=== PATIENT | female | born 1985 | race Caucasian/White ===

== ENCOUNTER → 2016-06-29 | Day surgery (SDC) | payer MEDICAID ==
[~2016-06-29] MED LIST: Lidocaine 1% 20 ML MDV ONE
[2016-06-29 09:20] VITALS: BP 111/68
--- NOTE | 2016-06-29 12:49 | OR ---
DATE OF OPERATION: 06/29/2016 PREOPERATIVE DIAGNOSIS: VENOUS INSUFFICIENCY WITH PAINFUL VARICOSE VEINS. POSTOPERATIVE DIAGNOSIS: VENOUS INSUFFICIENCY WITH PAINFUL VARICOSE VEINS. SURGEON: Guy Gautam MD PROCEDURE: AISHWARYA, RIGHT GSV. ANESTHESIA: Local with tumescent. COMPLICATIONS: None. SPECIMEN: None. FINDINGS: Successful AISHWARYA, right GSV. INDICATIONS: The patient has documented venous insufficiency with complicated and painful varicose veins. After conservative therapy, she elected to proceed with endovenous ablation. DESCRIPTION OF PROCEDURE: The patient was brought to the operating room site. The insufficient saphenous vein mapped via ultrasound and diagrammed on the overlying skin along with the depth and diameter of the vein to be treated along with the access site. She was prepped and draped in a sterile fashion. She was placed in reverse Trendelenburg position. Local anesthesia was instilled over the access site. The vein was accessed using ultrasound guidance in Seldinger technique with the guidewire introduced through the needle. A small incision made with an 11 blade scalpel. The guidewire was exchanged with a 6-Italian sheath in the usual fashion, held in place by skin tension. The guidewire removed, sheath flushed, radiofrequency probe was placed into the vein through the sheath and positioned approximately 2.1 cm distal to the saphenofemoral junction under ultrasound guidance, keeping the tip of the catheter just inferior to the superficial epigastric vein to preserve flow in that area. After probe position verified via ultrasound, tumescent anesthesia was infiltrated under ultrasound guidance, precisely in the perivenous compartment along the length of the vein to be treated from the saphenofemoral junction. From the entry site to the saphenofemoral junction, a nice halo effect was achieved. The patient was placed back in Trendelenburg position to exsanguinate the superficial venous system. After radiofrequency probe position confirmed with ultrasound and under direct external compression along the length of the heating element, radiofrequency energy was applied. The vein was segmentally ablated by heating a 7 cm segment and indexing the catheter forward 6.5 cm until treatment length complete. Device temperature was maintained at 120 degrees Celsius with an initial power level of 40 bowman dropping below 20 for each treatment. Total radiofrequency treatment time was 2 minutes and 40 seconds with 8 radiofrequency cycles. A total of 300 mL of tumescent anesthesia was used. Repeat ultrasound confirmed successful treatment. Catheter and sheath were withdrawn, and hemostasis was achieved with pressure. Leg was wrapped from the level of the ankle to the groin with a compression wrap. The patient was stable in the recovery room. PRANEETH /[id number]
== END ==
LOC: CC.SDS 07:19
PROVIDERS: ATTEND Family Medicine
DX: I87.2 Venous insufficiency (chronic) (peripheral) (principal); I83.811 Varicose veins of right lower extremity with pain; Z88.2 Allergy status to sulfonamides; Z88.8 Allergy status to other drugs, medicaments and biological substances; Z79.899 Other long term (current) drug therapy; Z78.9 Other specified health status; Z87.891 Personal history of nicotine dependence; Z72.0 Tobacco use
CPT/HCPCS: 36475; A4216

== ENCOUNTER → 2016-07-07 | Day surgery (SDC) | payer MEDICAID ==
[~2016-07-07] MED LIST changes: +ALPRAZolam 0.25 MG Tab ONE; +ALPRAZolam 0.25 MG Tab PO ONE; +Lidocaine 1% 30 ML SDV INJECT ONE
--- NOTE | 2016-07-07 08:57 | OR ---
DATE OF OPERATION: 07/07/2016 PREOPERATIVE DIAGNOSIS: VENOUS INSUFFICIENCY WITH PAINFUL VARICOSE VEINS. POSTOPERATIVE DIAGNOSIS: VENOUS INSUFFICIENCY WITH PAINFUL VARICOSE VEINS. SURGEON: Guy Gautam MD PROCEDURE: AISHWARYA, LEFT GSV. ANESTHESIA: Local with tumescent and oral Xanax. COMPLICATIONS: None. SPECIMEN: None. FINDINGS: Successful AISHWARYA, left GSV. INDICATIONS: The patient has documented venous insufficiency. She has symptomatic varicose veins and elects to undergo radiofrequency ablation. DESCRIPTION OF PROCEDURE: The patient was brought to the operating room site and the insufficient saphenous vein mapped via ultrasound and diagrammed on the overlying skin along with the access site. The entire limb was prepped and draped in sterile fashion. The patient was placed in reverse Trendelenburg position and local anesthesia was instilled at the access site. The vein was accessed using ultrasound guidance and Seldinger technique with a guidewire introduced through a needle, which was exchanged over the guidewire, first a six- Cuban sheath after a small incision with an 11 blade scalpel. The sheath was held in place by skin tension. The guidewire was removed. The sheath was flushed. The radiofrequency probe was placed into the vein through the sheath and positioned approximately 1.67 cm distal to the saphenofemoral junction using ultrasound guidance. After probe position verified via ultrasound, tumescent anesthesia was infiltrated, precisely in the perivenous compartment along the length of the vein, achieving a nice halo affect documented via ultrasound. The patient was put back in Trendelenburg position to exsanguinate the superficial system. Radiofrequency probe position confirmed via ultrasound and with direct external compression along the length of the humeral. Radiofrequency energy was applied. The vein was ablated by heating a 7 cm segment and indexing the catheter forward 6.5 cm until treatment length complete. Device temperature was maintained in the 120 degrees Celsius with an initial power level of 40 bowman, dropping to below 20 for each treatment. Total treatment time was a minute and 40 seconds with 5 radiofrequency cycles. A total of 300 mL of tumescent was used. Repeat ultrasound confirmed successful treatment. Catheter and sheath were withdrawn without problem. Hemostasis was established with direct pressure, and a skin incision was closed with the bandage and compression wrap from the level of the foot to the groin. The patient was stable in the recovery room. MELISSA/DAYA /[id number]
[2016-07-07 09:26] VITALS: BP 110/66
== END ==
LOC: CC.SDS 06:28
PROVIDERS: ATTEND Family Medicine
DX: I87.2 Venous insufficiency (chronic) (peripheral) (principal); I83.812 Varicose veins of left lower extremity with pain; Z88.2 Allergy status to sulfonamides; Z88.8 Allergy status to other drugs, medicaments and biological substances; Z79.899 Other long term (current) drug therapy; Z78.9 Other specified health status; Z87.891 Personal history of nicotine dependence; Z72.0 Tobacco use
CPT/HCPCS: 36415; 36475; 85014; 85018; A4216; A9270; G0145

== ENCOUNTER 2017-06-16 16:37 | Emergency (ER) | payer MEDICAID ==
[2017-06-16 16:48] VITALS: BP 120/72
--- NOTE | 2017-06-16 18:04 | EDM.PDOC ---
ED HPI GENERAL MEDICAL PROBLEM - General Chief Complaint: Lower Extremity Injury/Pain Stated Complaint: RIGHT FOOT PAIN Time Seen by Provider: 06/16/17 16:57 - History of Present Illness INITIAL COMMENTS - FREE TEXT/NARRATIVE: Briana is a pleasant 32 year old female who presents to the Ed with c/o right foot pain after twisting her foot. She reports she was ambulating and stepped wrong. She reports her right foot "twisted" and she "heard a crack." She reports she had instant pain. She reports she took 800 mg Ibuprofen immediately after incident occurred. She reports she also tried icing it. She reports she came in to make sure she didn't fracture it. Denies any numbness or tingling. Reports she has difficulty ambulating on it due to pain. Pain is improved when foot is still. Pain increases with movement and weight bearing. Onset: Today, Sudden Duration: Intermittent Location: Reports: Lower Extremity, Right Quality: Reports: Ache, Sharp Severity: Moderate Improves with: Reports: Cold Therapy, Medication Worsens with: Reports: Movement Context: Reports: Activity Associated Symptoms: Reports: No Other Symptoms. Denies: Confusion, Chest Pain , Cough, cough w sputum, Diaphoresis, Fever/Chills, Headaches, Loss of Appetite , Malaise, Nausea/Vomiting, Rash, Seizure, Shortness of Breath, Syncope, Weakness Treatments [employer] REPRESENTATIVE: Reports: Cold Therapy, NSAIDS Right Feet Pain Score (Numeric/FACES): 6 - Related Data Allergies Allergy/AdvReac Type Severity Reaction Status Date / Time cefdinir Allergy Cannot Verified 06/16/17 16:42 Remember fexofenadine [From Jane] Allergy Cannot Verified 06/16/17 16:42 Remember Sulfa (Sulfonamide Allergy Cannot Verified 06/16/17 16:42 Antibiotics) Remember Home Meds: Home Meds Amoxicillin 1 cap PO BID 06/16/17 [History] Past Medical History - Past Health History Medical/Surgical History: Denies Medical/Surgical History Musculoskeletal History: Reports: Arthritis Other Musculoskeletal History: R middle finger hx crush in door Social & Family History - Family History Family Medical History: Noncontributory - Tobacco Use Smoking Status *Q: Never Smoker - Caffeine Use Caffeine Use: Reports: None - Recreational Drug Use Recreational Drug Use: No Review of Systems - Review of Systems Review Of Systems: ROS reveals no pertinent complaints other than HPI. ED EXAM, GENERAL - Physical Exam Exam: See Below Exam Limited By: No Limitations General Appearance: Alert, WD/WN, No Apparent Distress Peripheral Pulses: 2+: Posterior Tibial (R), Dorsalis Pedis (R) Extremities: Normal Inspection, No Pedal Edema, Normal Capillary Refill, Limited Range of Motion (inversion and eversion). No: Pedal Edema, Joint Swelling, Leg Pain, Increased Warmth, Redness Neurological: Alert, Oriented, No Motor/Sensory Deficits Psychiatric: Normal Affect, Normal Mood Skin Exam: Warm, Dry, Intact, Normal Color, No Rash Course - Vital Signs Last Recorded V/S: Last Vital Signs Temp 96.5 F 06/16/17 16:45 Pulse 87 06/16/17 16:45 Resp 18 06/16/17 16:45 BP 120/72 06/16/17 16:45 Pulse Ox 99 06/16/17 16:45 - Orders/Labs/Meds Orders: Active Orders 24 hr Category Date Time Status Foot Comp Min 3V Rt [CR] Stat Exams 06/16/17 16:51 Taken - Re-Assessments/Exams Free Text/Narrative Re-Assessment/Exam: 06/16/17 18:00 Xrays show no acute fracture or dislocation. Does show well-corticated ossicle at the lateral base of the proximal first metatarsal, representing previous trauma. Results discussed and images reviewed with patient. Departure - Departure Time of Disposition: 17:59 Disposition: Home, Self-Care 01 Condition: Good Clinical Impression: Right foot sprain Qualifiers: Encounter type: initial encounter Qualified Code(s): S93.601A - Unspecified sprain of right foot, initial encounter - Discharge Information Instructions: Ankle Sprain, [id number] Referrals: Guy Gautam MD [Primary Care Provider] - Additional Instructions: 1) Weight bearing as tolerated 2) Ibuprofen 800 mg Q 8 hours as needed for pain 3) May alternate with 650 mg Tylenol as needed for pain 4) Ice affected area 20 minutes at a time at least 2 times /day 5) Elevate extremity 6) Marlon wrap to compress area as needed for comfort 7) Return to clinic if pain persist or continued inability to ambulate in 7-10 days - My Orders Last 24 Hours: My Active Orders 06/16/17 16:51 Foot Comp Min 3V Rt [CR] Stat - Assessment/Plan Last 24 Hours: My Active Orders 06/16/17 16:51 Foot Comp Min 3V Rt [CR] Stat
== END 2017-06-16 18:12 | disposition home or self-care (01) ==
LOC: CC.ED 16:37
DX: S93.601A Unspecified sprain of right foot, initial encounter (principal); Z88.8 Allergy status to other drugs, medicaments and biological substances; Z88.2 Allergy status to sulfonamides; X50.1XXA Overexertion from prolonged static or awkward postures, initial encounter
CPT/HCPCS: 73630-RT; 99283

== ENCOUNTER → 2018-07-18 | Day surgery (SDC) | payer MEDICAID ==
[~2018-07-18] MED LIST changes: -ALPRAZolam 0.25 MG Tab ONE; -ALPRAZolam 0.25 MG Tab PO ONE; +ALPRAZolam 0.5 MG Tab.DIS (ODT) PO ONE; -Lidocaine 1% 30 ML SDV INJECT ONE
[2018-07-18] MEDS: ALPRAZolam ODT 0.25 MG Tab ONE (06:10)
[2018-07-18 09:00] VITALS: BP 95/61
== END ==
LOC: CC.SDS 08:05
PROVIDERS: ATTEND Family Medicine
DX: I87.2 Venous insufficiency (chronic) (peripheral) (principal); Z88.2 Allergy status to sulfonamides; Z88.1 Allergy status to other antibiotic agents; Z88.8 Allergy status to other drugs, medicaments and biological substances
CPT/HCPCS: A9270-GY

== ENCOUNTER → 2019-11-09 | Day surgery (SDC) | payer OTHER ==
[~2019-11-09] MED LIST changes: -ALPRAZolam 0.5 MG Tab.DIS (ODT) PO ONE; +Ketamine 200 MG/20 ML MDV IV ONE; +Lactated Ringers 1,000 ML IV SCH; -Lidocaine 1% 20 ML MDV ONE; +Propofol 200 MG/20 ML SDV IV ONE; +fentaNYL 100 MCG/2 ML SDV IV ONE
[2019-11-09 13:03] VITALS: BP 104/68; PULSE 67
--- NOTE | 2019-11-12 08:52 | OR ---
DATE OF OPERATION: 11/09/2019 PREOPERATIVE DIAGNOSIS: CRICOPHARYNGEAL DYSPHAGIA. POSTOPERATIVE DIAGNOSIS: CRICOPHARYNGEAL DYSPHAGIA. SURGEON: Guy Gautam MD PROCEDURE: EGD WITH BIOPSIES X2, RAFAELA. ANESTHESIA: MAC. COMPLICATIONS: None. SPECIMEN: 1. Antral biopsy x2. 2. Antral RAFAELA. FINDINGS: 1. Full-length EGD. 2. Minimal antral gastritis, appearing chronic. 3. Prominent cricopharyngeus muscle. RECOMMENDATIONS: We will discuss definitive options given the patient's essentially normal EGD. INDICATIONS: The patient has been having ongoing issues with swallowing. For the most part, she feels like this is in the lower neck area, but she does state at times that she feels like she has epigastric pain and pressure, almost like a hiatal hernia-type sensation, although she denied severe reflux. We elected to proceed with diagnostic EGD. DESCRIPTION OF PROCEDURE: The patient was prepped and draped, placed in the left lateral decubitus position. A lubricated Olympus gastroscope was inserted over a bit, advanced to the cricopharyngeus area and ultimately intubated into the esophagus. The patient certainly has a prominent cricopharyngeus muscle and it was tight getting over this. Once into the esophagus, the esophageal lining appeared benign in its entire course. The Z-line was crisp and sharp at around 43 cm. There was no hernia. There was no spontaneous reflux. No distal esophagitis, stricturing, ulceration, or Rodriguez's changes. The scope was advanced into the stomach, through the pylorus, and into the second portion of the duodenum. This and the duodenal bulb were benign. The scope was brought back into the stomach and retroflexed. The upper fundus and cardia were completely benign. Straightening of the scope allowed further visualization of the fundus which was benign. There may have been some very minimal or mild chronic gastritis of the antrum. We did do 2 biopsies along with a RAFAELA. Air was then suctioned and the scope removed without complication. MELISSA/DAYA /[id number]
== END ==
LOC: CC.SDS 11:10
PROVIDERS: ATTEND Family Medicine
DX: K29.70 Gastritis, unspecified, without bleeding (principal); K31.89 Other diseases of stomach and duodenum; Z88.8 Allergy status to other drugs, medicaments and biological substances; Z88.2 Allergy status to sulfonamides
CPT/HCPCS: 00731; 36415; 84703; 87081; J2704; J3010; J7120

== ENCOUNTER 2023-11-27 10:48 | Emergency (ER) | payer OTHER ==
[2023-11-27 10:51] VITALS: BP 114/76; PULSE 84
[2023-11-27] MEDS: Tetracaine HCl/PF 0.5% 4 ML Bottle EYELF ONE (11:01)
[2023-11-27] MEDS: Fluorescein 1 MG Ophth Strip EYELF ONE (11:04)
[2023-11-27] MEDS: Dexamethasone/Tobramycin 0.1-0.3% Ophth Susp 2.5 ML Bottle EYELF SCH (11:12)
== END 2023-11-27 11:14 | disposition home or self-care (01) ==
LOC: CC.ED 10:48
DX: S05.02XA Injury of conjunctiva and corneal abrasion without foreign body, left eye, initial encounter (principal); F17.210 Nicotine dependence, cigarettes, uncomplicated; Z88.1 Allergy status to other antibiotic agents; Z88.2 Allergy status to sulfonamides; Z88.8 Allergy status to other drugs, medicaments and biological substances; X58.XXXA Exposure to other specified factors, initial encounter
CPT/HCPCS: 99283

== ENCOUNTER → 2023-12-06 | Day surgery (SDC) | payer OTHER ==
[2023-12-06 11:32] VITALS: BP 104/72; PULSE 67
[2023-12-06] MEDS: SODIUM TETRADECYL SULFATE INJECT SCH (12:10)
== END ==
LOC: CC.SDS 11:15
PROVIDERS: ATTEND Family Medicine
DX: I83.811 Varicose veins of right lower extremity with pain (principal)
CPT/HCPCS: J3490